=== PATIENT | male | born 1935 | race Caucasian/White ===

== ENCOUNTER 2016-04-15 09:43 | Emergency (ER) | payer OTHER, MEDICARE ==
[2016-04-15 10:24] LABS: % IMMATURE GRANULYOCYTES 0.3 % (0.0-1.1); ABSOLUTE IMMATURE GRANULOCYTES 0.02 10^3/uL (0.00-0.10); ADD DIFF? NO; ADD MORPH? NO; ADD SCAN? NO; ATYPICAL LYMPHOCYTE FLAG 10 (0-99); FRAGMENT RBC FLAG 0 (0-99); HEMATOCRIT 42.2 % (40.0-51.0); HEMOGLOBIN 14.2 g/dL (13.7-17.5); LEFT SHIFT FLG 0 (0-99); LIPEMIA HEMOLYSIS FLAG 80 (0-99); MEAN CELL HEMOGLOBIN 32.9 pg (27.9-34.1); MEAN CELL HEMOGLOBIN CONCENTR. 33.6 g/dL (32.4-36.7); MEAN CELL VOLUME 97.7 fL (81.5-99.8); MEAN PLATELET VOLUME 10.4 fL (8.7-11.7); PLATELET CLUMPS FLAG 0 (0-99); PLATELET COUNT 230 10^3/uL (150-400); RED BLOOD CELL COUNT 4.32 10^6/uL (4.40-6.38)
--- NOTE | 2016-04-15 10:36 | DX ---
Chest, PA and Lateral History: Peripheral edema, evaluate for pleural effusion, history of atrial fibrillation Comparison: November 02, 2015 Findings: Heart size and pulmonary vascularity is normal. Minimal costophrenic gutter blunting is les s prominent than previously. There is stable since May 2010 biapical pleural parenchymal scarring/n odularity. There is a stable vertically oriented linear scar in the right upper lobe. There is a stab le dense nodule in one of the posterior costophrenic gutters seen on the lateral view. There is a sta ble T9 and L1 compression deformity. There is no evidence for pneumonia. Impression: No evidence for acute cardiac failure. Decreased pleural fluid since October 2015.
--- NOTE | 2016-04-15 10:36 | EDPHY ---
H & P Stated Complaint: b LE swelling since ; worse x 2 weeks; return from [place] travel Source: Patient, Family Exam Limitations: No limitations - Personal History Current Tetanus/Diphtheria Vaccine: Unsure Current Tetanus Diphtheria and Acellular Pertussis (TDAP): Unsure Tetanus Vaccine Date: within the 10yrs. - Medical/Surgical History Hx Asthma: No Hx Chronic Respiratory Disease: No Hx Diabetes: No Hx Cardiac Disease: No Hx Renal Disease: No Hx Cirrhosis: No Hx Alcoholism: No Hx HIV/AIDS: No Hx Splenectomy or Spleen Trauma: No Other PMH: Pyloric stenosis, abd adhesions removed, bilateral carpal tunnel, trigger finger, anal fistula, Sinus infections; pna - Social History Smoking Status: Former smoker HPI/ROS: CHIEF COMPLAINT: Lower extremity swelling HISTORY OF PRESENT ILLNESS: patient reports swelling of both lower extremities that started around [place] time. At that time it was symmetric and mildly painful. He also describes intermittent claudication with this at the time. He saw his primary care physician to trialed him on Lasix. He removed him from Lasix due to increasing creatinine. He has not been on Lasix since the middle of March. Since then he notes increasing swelling of both legs, with more recent right-sided swelling greater than left after recent trip to [place] and [place]. The right leg is painful with palpation and passive range of motion. Also painful with ambulation. The left lower extremity is edematous and less painful of, only with ambulation. No chest pain or shortness of breath. No fever chills. No trauma to lower extremities. He has an appointment on Sunday with the inspector motor vehicles or [facility]. No other associated complaints or modifying factors REVIEW OF SYSTEMS: Ten systems reviewed and are negative unless otherwise noted in the HPI EXAMINATION General Appearance: Alert, no distress Head: normocephalic, atraumatic Eyes: Pupils equal and round, no conjunctival pallor or injection. EOMs intact ENT, Mouth: Mucous membranes moist. Uvula midline. No lesions or edema Neck: Normal inspection, supple, non-tender Respiratory: Lungs are clear to auscultation. No wheezing, rhonchi or crackles. Cardiovascular: Regular rate with regular rhythm. Pulses intact distally with symmetric DP, PT and radial pulses 2+ Gastrointestinal: Abdomen is soft and nontender. No tympany or rigidity. Neurological: A&O, nonfocal, Strength is symmetric in all limbs. Sensory intact distally. Skin: Warm and dry. Skin changes distally consistent with venous stasis. No ulcerations. No petechiae purpura. Small gonzalez hemangiomas bilaterally Extremities: tenderness to palpation of bilateral calf. No palpable cords. There is significant pedal edema. There is 3 to 4+ pitting edema on the right lower extremity. 2+ pitting edema on the left lower extremity. No pain with passive dorsiflexion. Mild erythema of the distal right lower extremity. Range of motion is fully intact and symmetric. Psychiatric: Mood and affect normal DIFFERENTIAL DIAGNOSES: Including but not limited to DVT, venous stasis, peripheral vascular disease, peripheral edema, nephrotic disease MDM: lower extremity peripheral edema that is worsened after recent trip. Clinical suspicion is low for DVT but given recent travel we will ultrasound both lower extremities to rule out DVT. 11:15 a.m. notified by radiologist Dr. Villarreal agrees that the DVT studies of both lower extremities are negative for DVT. 11:20 a.m. laboratory studies reveal mildly elevated INR , BNP of just over a 1000 bladder otherwise within normal limits. No evidence of DVT. We will discuss the case with his primary care physician to discuss outpatient follow-up and management. 11:35 a.m. Discussed the case with the on-call primary care physician as well as the on- call operating manager. They recommended 1 dose of Lasix 20 mg by mouth today. No further treatment until seen next week. He has an appointment with Nephrology on Sunday he will keep. He has declined medication here as he has several 20 mg tablets at home. He will take once he gets home. He will follow up accordingly as we discussed. Discharged home in stable condition. Patient's spouse are comfortable with this plan. SUPERVISION: Patient was evaluated in conjunction with the supervising physician. Please see their note for details. (Spike Penaloza) Constitutional: Initial Vital Signs Temperature (C) 98.4 F 04/15/16 09:52 Heart Rate 97 04/15/16 09:52 Respiratory Rate 20 04/15/16 09:52 Blood Pressure 105/66 04/15/16 09:52 O2 Sat (%) 94 04/15/16 09:52 O2 Delivery Mode Room Air Allergies/Adverse Reactions: furosemide [From Lasix] Allergy (Verified 04/15/16 09:50) Home Medications: Medication Instructions Recorded Fluticasone Nasal [Flonase Nasal 1 sprays NASAL DAILY PRN 12/15/13 [place]] Clobetasol 0.05% 09/28/15 Diltiazem 09/28/15 Neosporin Antibiotic Ointment 09/28/15 Pradaxa 09/28/15 Voltaren 0.1% (*) 09/28/15 Medical Decision Making ED Course/Re-evaluation: PHYSICIAN DOCUMENTATION: The patient was evaluated and managed by the Physician Shipping Receiving Clerk and myself. I have reviewed the chart and agree with the findings and plan of care as documented. In addition, I examined the patient myself at 1024. History confirmed as peripheral edema, recent travel to [place] with difficulty adhering to his regular diet. He describes pain in his legs which is really pain in his skin with flexion or extension of his ankle or knee. He does not really have symptoms of claudication on my interview as he states that physical exertion does not cause leg pain but it is the stretching of his skin when he moves his joints. Physical findings as follows: Normal compartments and normal dorsalis pedis pulses bilaterally. Discussed with Dr. Scott for [facility] [id number] who recommends single dose of oral Lasix 20 mg. I am the secondary supervising physician. (Harmeet Corrales) - Data Points Laboratory Results: Laboratory Results 04/15/16 10:15 04/15/16 10:15 Departure - Departure Disposition: Home, Routine, Self-Care Clinical Impression: Peripheral edema Condition: Good Instructions: Edema (ED) Additional Instructions: Take 1 Lasix 20 mg pill when you get home today. Take no further until you see a inspector motor vehicles on Sunday. Elevate her extremities. Decrease sodium intake. Decrease excessive fluid intake. Referrals: Ezra Burnette MD [Primary Care Provider] - As per Instructions
[2016-04-15 10:38] LABS: INR 1.44 (0.83-1.16); PROTIME(PATIENT) 17.5 SEC (12.0-15.0)
[2016-04-15 10:39] LABS: APTT 48.1 SEC (23.0-38.0)
[2016-04-15 10:58] LABS: ALANINE AMINOTRANSFERASE 40 IU/L (21-72); ALBUMIN 3.5 g/dL (3.5-5.0); ALKALINE PHOSPHATASE 81 IU/L (38-126); ANION GAP 10 mEq/L (8-16); ASPARTATE AMINOTRANSFERASE 28 IU/L (17-59); BILIRUBIN,TOTAL 0.8 mg/dL (0.1-1.4); CALCIUM 9.1 mg/dL (8.5-10.4); CARBON DIOXIDE 25 mEq/l (22-31); CHLORIDE 109 mEq/L (97-110); CREATININE 1.1 mg/dL (0.7-1.3); GLOMERULAR FILTRATION RATE > 60; GLUCOSE 185 mg/dL (70-100); MAGNESIUM 1.8 mg/dL (1.6-2.3); SODIUM 144 mEq/L (134-144); TOTAL PROTEIN 6.2 g/dL (6.3-8.2)
--- NOTE | 2016-04-15 11:17 | US ---
Ultrasound and Venous Duplex Doppler Study of Both the Right and Left Lower Extremities History: Progressive bilateral leg swelling since February 2016, patient is on blood thinners for atr ial fibrillation Technique: High frequency transducer was used for imaging and Doppler study of the veins of the righ t and left lower extremities. Pulsed Doppler and color Doppler were utilized, along with various ma neuvers to assess flow in the veins. Findings: Right: The deep veins of the right lower extremity are normally compressible between the groin and th e upper calf. They have normal Doppler waveforms within them. No venous thrombosis is identified. Left: The deep veins of the left lower extremity are normally compressible between the groin and the upper calf. They have normal Doppler wave forms within them. No venous thrombus is identified. Impression: No evidence of deep vein thrombosis in the right or left lower extremity. Results called and discussed with Spike Penaloza, at 04/15/2016 11:15
[2016-04-15 11:27] VITALS: RESP 16
[2016-04-15] MEDS ORDERED: FUROSEMIDE 20 MG TAB PO ONE (11:31)
[2016-04-15 11:35] LABS: COLOR YELLOW; LEUKOCYTE ESTERASE,URINE NEGATIVE (NEGATIVE); NITRITE,URINE NEGATIVE (NEGATIVE)
[2016-04-15 11:38] LABS: MUCUS TRACE /lpf (NONE-1+)
[2016-04-15 11:49] VITALS: BP 112/75; PULSE 89; TEMP 97.5; O2SAT 98
== END 2016-04-15 11:49 | disposition home or self-care (01) ==
DX: R60.0 Localized edema (principal); Z87.891 Personal history of nicotine dependence

== ENCOUNTER → 2016-05-10 | Outpatient (CLI) | payer OTHER, MEDICARE | LOC: FIMAGING 14:38 | PROVIDERS: ATTEND Internal Medicine Nephrology | DX: N28.1 Cyst of kidney, acquired (principal); R79.89 Other specified abnormal findings of blood chemistry; I48.2 Chronic atrial fibrillation ==

== ENCOUNTER → 2016-08-07 | Outpatient (CLI) | payer OTHER, MEDICARE | LOC: BMCIMAGING 12:49 | PROVIDERS: ATTEND Nurse Practitioner Adult Health | DX: J34.89 Other specified disorders of nose and nasal sinuses (principal) ==

== ENCOUNTER → 2016-09-04 | Outpatient (CLI) | payer OTHER, MEDICARE | LOC: FIMAGING 13:34 | PROVIDERS: ATTEND Physician Assistant Medical | DX: J32.0 Chronic maxillary sinusitis (principal) ==

== ENCOUNTER 2017-06-29 05:42 | Day surgery (SDC) | payer OTHER, MEDICARE ==
[2017-06-29] MEDS ORDERED: ceFAZolin 2 GM/SWFI 2 GM/20 ML SYR IVP ONE (06:11)
[2017-06-29] MEDS ORDERED: LR 1,000 ML IV ONE (06:45)
[2017-06-29] MEDS ORDERED: BUPIVACAINE 0.5% 30 ML SDV ONE (06:56)
--- NOTE | 2017-06-29 07:11 | PDANEPAE ---
ANE History of Present Illness left hernia ANE Past Medical History - Cardiovascular History Hx Hypertension: No Hx Arrhythmias: Yes Hx Chest Pain: No Hx Coronary Artery / Peripheral Vascular Disease: No Hx CHF / Valvular Disease: No Hx Palpitations: No Cardiovascular History Comment: ATRIAL FIB W/CARDIOVERSION 09/29/15 - NO EPISODES SINCE. TAKES PRADAXA & DILTIAZEM. AORTIC ANEIRYSM - Pulmonary History Hx COPD: No Hx Asthma/Reactive Airway Disease: No Hx Recent Upper Respiratory Infection: No Hx Oxygen in Use at Home: No Hx Sleep Apnea: Yes Sleep Apnea Screening Result - Last Documented: Positive Pulmonary History Comment: POS BHARGAV - NO CPAP CURRENTLY. MOUTHGUARD CURRENTLY - Neurologic History Hx Cerebrovascular Accident: No Hx Seizures: No Hx Dementia: No Neurologic History Comment: VISUAL MIGRAINES OCCAS - Endocrine History Hx Diabetes: No - Renal History Hx Renal Disorders: No Renal History Comment: EDEMA GIORGIO LEs - TAKES BUMETANIDE - Liver History Hx Hepatic Disorders: No - Neurological & Psychiatric Hx Hx Neurological and Psychiatric Disorders: No - Cancer History Hx Cancer: No - Congenital Disorder History Hx Congenital Disorders: No - GI History Hx Gastrointestinal Disorders: No - Other Health History Other Health History: NEG - Chronic Pain History Chronic Pain: No - Surgical History Prior Surgeries: CARDIOVERSION - ATRIAL FIB. FISTULA ANAL. PYLORIC STENOSIS/ ADHESIONS INFANCY. CARPAL TUNNEL. TRIGGER FINGERS ANE Review of Systems Review of Systems: - Exercise capacity METS (RN): 5 METS ANE Patient History - Allergies Allergies/Adverse Reactions: furosemide [From Lasix] Allergy (Verified 06/29/17 06:13) UNK REACTION - Home Medications Home Medications: Clobetasol 0.05% 09/28/15 [Last Taken 06/25/17] Diltiazem 09/28/15 [Last Taken 06/29/17 05:15] Neosporin Antibiotic Ointment 09/28/15 [Last Taken Unknown] Pradaxa 09/28/15 [Last Taken 06/26/17] Bumetanide 06/28/17 [Last Taken 06/29/17] Rhinocort Allergy 06/28/17 [Last Taken 06/28/17] - NPO status NPO Since - Liquids (Date): 06/28/17 NPO Since - Liquids (Time): 21:00 NPO Since - Solids (Date): 06/28/17 NPO Since - Solids (Time): 20:00 - Smoking Hx Smoking Status: Former smoker - Family Anes Hx Family Hx Anesthesia Complications: NEG ANE Labs/Vital Signs - Labs Result Diagrams: 06/29/17 06:30 - Vital Signs Blood Pressure: 105/78 Heart Rate: 73 Respiratory Rate: 16,095 Height: 186.69 cm Weight: 79.832 kg ANE Physical Exam - Airway Neck exam: FROM Mallampati Score: Class 1 Mouth exam: normal dental/mouth exam - Pulmonary Pulmonary: no respiratory distress - Cardiovascular Cardiovascular: regular rate and rhythym - ASA Status ASA Status: III ANE Anesthesia Plan Anesthesia Plan: general endotracheal anesthesia
--- NOTE | 2017-06-29 07:17 | PDHPUP ---
History & Physical Update H&P update statement: This history and physical update is based on an assessment of the patient which was completed after admission or registration (within 24 hours), but prior to the surgery/procedure. H&P update: H&P reviewed & patient examined, no change in patient's condition since H&P completed
[2017-06-29] MEDS ORDERED: fentaNYL 100 MCG/2 ML INJ ONE ×2 (07:21)
[2017-06-29] MEDS ORDERED: PROPOFOL 200 MG/20 ML VIAL ONE (07:21)
[2017-06-29] MEDS ORDERED: HYDROmorphONE/DILAUDID 2 MG/ML INJ ONE (07:21)
[2017-06-29] MEDS ORDERED: NALOXONE HCL 0.4 MG/ML INJ IVP PRN (07:55)
[2017-06-29] MEDS ORDERED: fentaNYL 100 MCG/2 ML INJ IVP PRN (07:55)
[2017-06-29] MEDS ORDERED: HYDROmorphONE/DILAUDID 2 MG/ML INJ IVP PRN (07:55)
[2017-06-29] MEDS ORDERED: ONDANSETRON 4 MG/2 ML VIAL IVP PRN (07:55)
[2017-06-29] MEDS ORDERED: DEXAMETHASONE 4 MG/ML VIAL IVP PRN (07:55)
[2017-06-29] MEDS ORDERED: HYDROCODONE/APAP 5/325 TAB PO PRN (07:55)
[2017-06-29] MEDS ORDERED: PROMETHAZINE HCL 25 MG/ML INJ IVP PRN (07:55)
[2017-06-29] MEDS ORDERED: ONDANSETRON 4 MG/2 ML VIAL ONE (08:21)
[2017-06-29] MEDS ORDERED: DEXAMETHASONE 4 MG/ML VIAL ONE (08:21)
[2017-06-29] MEDS ORDERED: ROCURONIUM 50 MG/5 ML VIAL ONE (08:21)
--- NOTE | 2017-06-29 08:36 | POSTANESTH ---
Post Anesthetic Evaluation Cardiovascular Status: Normal, Stable Respiratory Status: Normal, Stable Level of Consciousness/Mental Status: Can Participate in Eval Pain Control: Adequate, Prn Tx Ordered Nausea/Vomiting Control: Adequate, Prn Tx Ordered Complications Possibly Related to Anesthesia: None Noted
[2017-06-29 10:28] VITALS: BP 91/65
--- NOTE | 2017-07-21 19:14 | GOP ---
[f rep st] OPERATIVE REPORT DATE OF OPERATION: SURGEON: Ephraim Delgado MD GOLD BUYER: Cayla Martin, GERALD ANESTHESIOLOGIST: Melba Cesar MD PREOPERATIVE DIAGNOSIS: Left inguinal hernia. POSTOPERATIVE DIAGNOSIS: Left inguinal hernia. PROCEDURE PERFORMED: Laparoscopic left inguinal hernia repair with mesh, exploration of the right si de. FINDINGS: The patient was found have a large direct defect on the left, with no evidence of herniati on on the right. ESTIMATED BLOOD LOSS: Negligible. Taken to the recovery room in good condition. DESCRIPTION OF PROCEDURE: The patient was taken to the operating room, where he received satisfactor y general endotracheal anesthesia with Dr. Cesar. He was placed in the supine position, prepped and draped in the usual sterile fashion. An infraumbilical incision was made. Dissection was carried d own through subcutaneous tissue. Rectus sheath was incised. A subfascial tunnel was developed in th e preperitoneal space, which was dissected free with a balloon dissector. That was replaced with a C O2 insufflation trocar. Two other trocars placed in the midline under direct vision. Olman ligamen t was exposed bilaterally. The cords were mobilized bilaterally. Peritoneum was dissected off the c ord structures. There were no significant indirect sacs. On the left, a large direct defect was mary ed up, its contents reduced. A Covidien polyester mesh patch was introduced and placed over the ingu inal floor and anchored in place with AbsorbaTack, securing it to Olman ligament, the lacunar ligame nt, the anterior abdominal wall, the lateral abdominal wall outside the internal ring. Attention was turned to the right side, where no hernia defect could be demonstrated. Trocars were then removed u nder direct vision and pneumoperitoneum was released. Trocar sites were closed with 0 Vicryl for the fascia, 4-0 Monocryl subcuticular stitch for the skin, and all layers infiltrated with 0.5% Marcaine . /[id number]/MODL
== END 2017-06-29 10:00 | disposition home or self-care (01) ==
LOC: FSGY 05:42
PROVIDERS: ATTEND Surgery
PROC: 0YJ54ZZ Inspection of Right Inguinal Region, Percutaneous Endoscopic Approach (ICD-10-PCS; principal; 2017-06-29 07:15)
PROC: 0YU64JZ Supplement Left Inguinal Region with Synthetic Substitute, Percutaneous Endoscopic Approach (ICD-10-PCS; principal; 2017-06-29 07:15)
DX: K40.90 Unilateral inguinal hernia, without obstruction or gangrene, not specified as recurrent (principal); I48.1 Persistent atrial fibrillation; E21.3 Hyperparathyroidism, unspecified; G47.33 Obstructive sleep apnea (adult) (pediatric); Z87.891 Personal history of nicotine dependence
CPT/HCPCS: C1727; C1781; J0690; J1100; J1170; J2405; J2704; J3010

== ENCOUNTER → 2017-07-31 | Outpatient (CLI) | payer OTHER, MEDICARE | LOC: BHFA 15:00 | PROVIDERS: ATTEND Internal Medicine Cardiovascular Disease | DX: I48.91 Unspecified atrial fibrillation (principal) ==

== ENCOUNTER 2018-05-08 14:16 | Emergency (ER) | payer OTHER, MEDICARE ==
--- NOTE | 2018-05-08 14:57 | EDPHY ---
H & P Time Seen by Provider: 05/08/18 14:56 HPI/ROS: Chief complaint. Cough, sore throat, fatigue HPI. Treatment this with 5 day history of cough that is productive yellow sputum. He has had progressive exhaustion and decreased oral intake. Some upper congestion and slight sore throat. Saw his PCP 2 days ago and diagnosed with viral syndrome. His symptoms have continued. He has a history of URIs going to sinus infection. Really does not have sinus pain or pressure. Does not think he has been running a fever. No shortness of breath or chest discomfort. No abdominal pain nausea vomiting diarrhea. No rash. No recent travel or known exposure to Infectious Disease. ROS 10 systems were reviewed and negative with the exception of the elements mentioned in the history of present illness Past Medical/Surgical History: Atrial fibrillation, sinus infection, pyloric stenosis Social History: , nonsmoker, no alcohol Smoking Status: Former smoker Physical Exam: General Appearance: Alert somewhat ill-appearing male stable vital signs Eyes: Pupils equal and round no pallor or injection. ENT, tympanic membranes are normal. Pharynx without injection. Mucous membranes are moist Respiratory: No retractions. Inspiratory expiratory rhonchi Cardiovascular: Regular rate and rhythm. Gastrointestinal: Abdomen is soft and nontender, no masses, bowel sounds normal. Neurological: Awake and alert, sensory and motor exams grossly normal. Skin: Warm and dry, no rashes. Musculoskeletal: Neck is supple nontender. Extremities symmetrical, full range of motion. Psychiatric: Patient is oriented X 3, there is no agitation. Constitutional: Initial Vital Signs Temperature (C) 37.1 C 05/08/18 14:25 Heart Rate 88 05/08/18 14:25 Respiratory Rate 16 05/08/18 14:25 Blood Pressure 108/58 L 05/08/18 14:25 O2 Sat (%) 97 05/08/18 14:25 O2 Delivery Mode Room Air Allergies/Adverse Reactions: furosemide [From Lasix] Allergy (Verified 05/08/18 14:22) UNK REACTION Home Medications: Medication Instructions Recorded Clobetasol 0.05% 09/28/15 Diltiazem 09/28/15 Pradaxa 09/28/15 Bumetanide 06/28/17 Azithromycin [Zithromax] 250 mg PO DAILY #6 tab 05/08/18 Eye Drops 05/08/18 Medical Decision Making - Diagnostics Imaging Results: Imaging Impressions Chest X-Ray 05/08/18 15:10 Impression: Mild perihilar bronchitis with interim development of small bilateral pleural effusions since 04/15/2016. There is no focal infiltrate identified. Chest x-ray interpreted by me shows small bilateral pleural effusions. No evidence for pneumonia Procedures: IV normal saline. Septic workup ED Course/Re-evaluation: Re-evaluation at 4:30 p.m.. Patient is stable. Patient and his and I discussed imaging and lab results. Patient is offered admission but feels comfortable being discharged and treated as an outpatient. We discussed treatment plan including criteria for return and importance of follow-up and further evaluation. He expresses understanding and agreement. Differential Diagnosis: I considered pneumonia, viral syndrome, influenza. Patient has a history viral syndrome going to sinus infection that has been successfully treated with antibiotics multiple times in the past. This may still be viral in bronchitis. No evidence for sepsis or influenza - Data Points Laboratory Results: Laboratory Results 05/08/18 14:44 05/08/18 14:44 05/08/18 05/08/18 05/08/18 15:35 15:35 14:44 WBC RBC Hgb Hct MCV MCH MCHC RDW Plt Count MPV Neut % (Auto) Lymph % (Auto) [place] % (Auto) Eos % (Auto) Baso % (Auto) Nucleat RBC Rel Count Absolute Neuts (auto) Absolute Lymphs (auto) Absolute Monos (auto) Absolute Eos (auto) Absolute Basos (auto) Absolute Nucleated RBC Immature Gran % Immature Gran # RBC/WBC/PLT Morphology Platelet Estimate VBG Lactic Acid 0.7 mmol/L mmol/L (0.7-2.1) Sodium 132 mEq/L L mEq/L (135-145) Potassium 3.5 mEq/L mEq/L (3.5-5.2) Chloride 100 mEq/L mEq/L (97-110) Carbon Dioxide 23 mEq/l mEq/l (22-31) Anion Gap 9 mEq/L mEq/L (6-14) BUN 18 mg/dL mg/dL (7-23) Creatinine 1.2 mg/dL mg/dL (0.7-1.3) Estimated GFR 58 Glucose 90 mg/dL mg/dL (70-100) Calcium 8.7 mg/dL mg/dL (8.5-10.4) Nasal Influenza A PCR NEGATIVE FOR FLU A (NEGATIVE) Nasal Influenza B PCR NEGATIVE FOR FLU B (NEGATIVE) 05/08/18 14:44 WBC 11.58 10^3/uL H 10^3/uL (3.80-9.50) RBC 4.07 10^6/uL L 10^6/uL (4.40-6.38) Hgb 14.0 g/dL g/dL (13.7-17.5) Hct 41.4 % % (40.0-51.0) MCV 101.7 fL H fL (81.5-99.8) MCH 34.4 pg H pg (27.9-34.1) MCHC 33.8 g/dL g/dL (32.4-36.7) RDW 13.5 % % (11.5-15.2) Plt Count 220 10^3/uL 10^3/uL (150-400) MPV 10.3 fL fL (8.7-11.7) Neut % (Auto) 67.3 % % (39.3-74.2) Lymph % (Auto) 13.9 % L % (15.0-45.0) [place] % (Auto) 17.1 % H % (4.5-13.0) Eos % (Auto) 0.9 % % (0.6-7.6) Baso % (Auto) 0.3 % % (0.3-1.7) Nucleat RBC Rel Count 0.0 % % (0.0-0.2) Absolute Neuts (auto) 7.79 10^3/uL H 10^3/uL (1.70-6.50) Absolute Lymphs (auto) 1.61 10^3/uL 10^3/uL (1.00-3.00) Absolute Monos (auto) 1.98 10^3/uL H 10^3/uL (0.30-0.80) Absolute Eos (auto) 0.10 10^3/uL 10^3/uL (0.03-0.40) Absolute Basos (auto) 0.03 10^3/uL 10^3/uL (0.02-0.10) Absolute Nucleated RBC 0.00 10^3/uL 10^3/uL (0-0.01) Immature Gran % 0.5 % % (0.0-1.1) Immature Gran # 0.06 10^3/uL 10^3/uL (0.00-0.10) RBC/WBC/PLT Morphology TNP Platelet Estimate TNP VBG Lactic Acid Sodium Potassium Chloride Carbon Dioxide Anion Gap BUN Creatinine Estimated GFR Glucose Calcium Nasal Influenza A PCR Nasal Influenza B PCR Medications Given: Discontinued Medications Sodium Chloride (Ns) 1,000 mls @ 0 mls/hr IV EDNOW ONE; Wide Open PRN Reason: Protocol Stop: 05/08/18 15:11 Last Admin: 05/08/18 15:32 Dose: 1,000 mls Departure - Departure Disposition: Home, Routine, Self-Care Clinical Impression: Bronchitis Condition: Good Instructions: Acute Bronchitis (ED) Additional Instructions: Drink enough fluids to stay hydrated. Continue regular medication Zithromax as antibiotic Return for worsening symptoms Recheck in 2 days if not improving Referrals: Ezra Burnette MD [Primary Care Provider] - 2-3 days, if not improved Prescriptions: Azithromycin [Zithromax] 250 mg PO DAILY #6 tab
[2018-05-08] MEDS ORDERED: NS 1,000 ML IV ONE (15:10)
[2018-05-08 15:19] LABS: PLATELET COUNT 220 10^3/uL (150-400)
[2018-05-08 16:56] VITALS: BP 116/67
== END 2018-05-08 16:56 | disposition home or self-care (01) ==
DX: J40 Bronchitis, not specified as acute or chronic (principal); E86.9 Volume depletion, unspecified; I48.91 Unspecified atrial fibrillation